=== PATIENT | female | born 1980 | race Caucasian/White ===

== ENCOUNTER → 2018-10-06 12:50 | Outpatient (POV) | payer OTHER, SELFPAY | PROVIDERS: Visit Provider Nurse Practitioner Acute Care | DX: Z00.00 Encounter for general adult medical examination without abnormal findings (principal) ==

== ENCOUNTER → 2019-01-05 16:16 | Outpatient (CLI) | payer OTHER, SELFPAY | PROVIDERS: Visit Provider Obstetrics & Gynecology | DX: Z22.39 Carrier of other specified bacterial diseases (principal) | CPT/HCPCS: 87070; 87077; 87186; 87205 ==